=== PATIENT | female | born 1985 | race Caucasian/White ===

== ENCOUNTER 2016-12-27 09:59 | Outpatient (CLI) | payer MEDICAID | END 2016-12-27 10:00 | disposition home or self-care (01) | DX: Z00.00 Encounter for general adult medical examination without abnormal findings (principal) ==

== ENCOUNTER 2017-09-22 17:33 | Emergency (ER) | payer MEDICAID ==
[2017-09-22 17:39] VITALS: BP 114/80
[2017-09-22] MEDS ORDERED: DEXAMETHASONE 10 MG/ML VIAL PO STA (17:49)
--- NOTE | 2017-09-22 17:51 | ED Physician Documentation ---
PD HPI HEENT - Stated complaint Stated Complaint: SINUS PRESSURE - Chief complaint Chief Complaint: Heent - History obtained from History obtained from: Patient - History of Present Illness Timing - onset: How many days ago (5) Timing - duration: Days (5) Timing - details: Gradual onset, Still present Location: Sinuses Improves: Medication Worsens: Swalllowing Associated symptoms: Fever, Congestion, Rhinorrhea, Facial swelling, Headache, Cough Similar symptoms before: Diagnosis (sinusitis) Recently seen: Not recently seen - Additional information Additional information: 32-year-old female with a prior history of sinusitis has developed symptoms again with congestion cough and drainage. She is having a lot of bright green drainage from her nose. She has a bit of a cough and some swelling in the back of her throat and a sore throat. Review of Systems Constitutional: reports: Fever, Chills, Myalgias Eyes: denies: Decreased vision Ears: denies: Ear pain Nose: reports: Rhinorrhea / runny nose, Congestion, Sinus pressure / pain Throat: reports: Sore throat Cardiac: denies: Chest pain / pressure, Palpitations Respiratory: reports: Cough. denies: Dyspnea GI: denies: Vomiting PD PAST MEDICAL HISTORY - Past Medical History Neuro: None HEENT: Other Musculoskeletal: None - Past Surgical History Past Surgical History: Yes HEENT: Tonsil/Adenoidectomy - Present Medications Home Medications: Ambulatory Orders Medication Instructions Recorded Confirmed Amoxicillin 875 mg PO BID #20 tablet 09/22/17 - Allergies Allergies/Adverse Reactions: Allergies Allergy/AdvReac Type Severity Reaction Status Date / Time No Known Drug Allergies Allergy Verified 09/22/17 17:39 - Social History Does the pt smoke?: Yes Smoking Status: Current every day smoker Does the pt drink ETOH?: No Does the pt have substance abuse?: No - Immunizations Immunizations are current?: Yes - POLST Patient has POLST: No PD ED PE NORMAL - Vitals Vital signs reviewed: Yes (normal ) - General General: No acute distress, Well developed/nourished - HEENT HEENT: Atraumatic, PERRL, EOMI, Other (both TM's are flush and there is maxillary sinus tenderness, frontal sinus tenderness and there is swelling to the back of the throat. ) - Cardiac Cardiac: RRR, No murmur - Respiratory Respiratory: No respiratory distress, Clear bilaterally - Abdomen Abdomen: Soft, Non tender - Back Back: No CVA TTP, No spinal TTP - Derm Derm: Normal color, Warm and dry, No rash - Extremities Extremities: No deformity, No edema - Neuro Neuro: No motor deficit, No sensory deficit - Psych Psych: Normal mood, Normal affect Results - Vitals Vitals: Vital Signs - 24 hr 09/22/17 17:38 Temperature 36.4 C L Heart Rate 84 Respiratory 16 Rate Blood Pressure 114/80 O2 Saturation 100 Oxygen O2 Source Room air PD MEDICAL DECISION MAKING - ED course Complexity details: considered differential, d/w patient ED course: 32-year-old female with prior history of sinusitis has again today sinusitis. She has had good luck with use of amoxicillin previously and we will use that again today. She is given a dose of dexamethasone here in the emergency department which she acknowledges helped quite a bit the last time she had this. Departure - Departure Disposition: 01 Home, Self Care Clinical Impression: Sinusitis Condition: Stable Instructions: ED Sinusitis Abx Tx Follow-Up: [facility] ([place]) [Provider Group] Prescriptions: Amoxicillin 875 mg PO BID #20 tablet Forms: Activity restrictions
[2017-09-22] MEDS ORDERED: DEXAMETHASONE 10 MG/ML VIAL ONE (18:03)
[2017-09-22] MEDS ORDERED: CHERRY SYRUP 10 ML UDC PO ONE (18:03)
== END 2017-09-22 18:04 | disposition home or self-care (01) ==
LOC: ED 17:33
DX: J32.9 Chronic sinusitis, unspecified (principal); F17.200 Nicotine dependence, unspecified, uncomplicated
CPT/HCPCS: 99283; A9270

== ENCOUNTER 2018-05-21 10:37 | Outpatient (CLI) | payer MEDICAID ==
--- NOTE | 2018-05-21 12:09 | Ultrasound Report ---
Procedure Date: 05/21/2018 Accession Number: [id number] / [id number] Procedure: US - Breast Unilateral Limited CPT Code: FULL RESULT: EXAM: Diagnostic Dig Bilat and Right Breast Ultrasound DATE: 05/21/2018 10:55 AM CLINICAL HISTORY: Palpable lumps right breast COMPARISON: Baseline exam. BILATERAL MAMMOGRAM: TECHNIQUE: Bilateral digital CC and MLO projections with additional right true lateral and spot compression views. FINDINGS: The breast tissue is heterogeneously dense. No dominant mass, architectural distortion, skin thickening, suspicious microcalcifications or other finding. RIGHT BREAST ULTRASOUND: Real time scanning by the spring manufacturing set up technician was saved static images reviewed. Ultrasound examination is performed of the right upper outer quadrant in the area of palpable abnormality. No cystic or solid mass or abnormal fluid collection is seen. IMPRESSION: Negative bilateral mammography and right breast ultrasound. RECOMMENDATION: Suggest clinical follow-up and routine screening at age 39. BIRADS CATEGORY 1: Negative. STANDARD QUALIFYING STATEMENTS: 1. This examination was reviewed with the aid of Computer-Aided Detection (CAD). 2. A negative or benign imaging report should not delay biopsy if clinically suspicious findings are present. Consider surgical consultation if warrented. More than 5% of cancers are not identified by imaging. 3. Dense breasts may obscure an underlying neoplasm.
== END 2018-05-21 10:38 | disposition home or self-care (01) ==
LOC: DI 10:37
PROVIDERS: ATTEND Nurse Practitioner Gerontology
DX: N63.12 Unspecified lump in the right breast, upper inner quadrant (principal); N63.10 Unspecified lump in the right breast, unspecified quadrant
CPT/HCPCS: 76642; 77066

== ENCOUNTER 2024-07-12 15:38 | Outpatient (CLI) | payer OTHER ==
--- NOTE | 2024-07-13 10:36 | XRAY Report ---
PROCEDURE: Knee 4+V RT INDICATIONS: PAIN IN RIGHT KNEE TECHNIQUE: 4 views of the knee(s) were acquired. COMPARISON: None. FINDINGS: Bones: No fractures or dislocations. No suspicious bony lesions. Soft tissues: No radiographically evident suprapatellar joint effusion. IMPRESSION: No acute bony abnormality. Reviewed by: Justin Brink MD on 07/13/2024 10:35 AM PDT Approved by: Justin Brink MD on 07/13/2024 10:35 AM PDT Station ID: [id number]
== END 2024-07-12 15:39 | disposition home or self-care (01) ==
LOC: DI 15:38
PROVIDERS: ATTEND Physician Assistant Surgical
DX: M25.561 Pain in right knee (principal)

== ENCOUNTER 2024-07-26 15:42 | Outpatient (CLI) | payer OTHER ==
[2024-07-26 17:17] LABS: RHEUMATOID FACTOR NEGATIVE (Negative)
== END 2024-07-26 15:43 | disposition home or self-care (01) ==
LOC: LAB 15:42
PROVIDERS: ATTEND Physician Assistant Surgical
DX: M25.461 Effusion, right knee (principal)
CPT/HCPCS: 36415; 85651; 86038; 86140; 86430